=== PATIENT | male | born 1965 | race Caucasian/White ===

== ENCOUNTER → 2020-02-15 | Outpatient (CLI) | payer BC | LOC: RAD 17:24 | DX: M79.671 Pain in right foot (principal); M19.071 Primary osteoarthritis, right ankle and foot; V86.99XA Unspecified occupant of other special all-terrain or other off-road motor vehicle injured in nontraffic accident, initial encounter | CPT/HCPCS: 71101; 73610; 73630 ==

== ENCOUNTER 2020-07-25 12:13 | Emergency (ER) | payer BC ==
[2020-07-25 13:28] LABS: HEMOGLOBIN 17.6 gm/dl (14.0-17.5); RED BLOOD COUNT 5.29 M/UL (4.20-5.50); WHITE BLOOD COUNT 9.7 K/UL (4.5-11.0)
[2020-07-25 13:52] LABS: BUN/CREATININE RATIO 22 (0-10)
== END 2020-07-25 17:50 | disposition home or self-care (01) ==
LOC: ER1 12:13
PROVIDERS: Nurse Practitioner
DX: R07.9 Chest pain, unspecified (principal); E11.9 Type 2 diabetes mellitus without complications; E78.5 Hyperlipidemia, unspecified; Z79.84 Long term (current) use of oral hypoglycemic drugs; Z79.899 Other long term (current) drug therapy; M79.7 Fibromyalgia
CPT/HCPCS: 71045; 80053; 81001; 82550; 82553; 83605; 83735; 83874; 84484; 85025; 85379; 93005; 99285

== ENCOUNTER 2021-09-19 13:07 | Emergency (ER) | payer BC ==
[2021-09-19 14:13] LABS: HEMOGLOBIN 18.3 gm/dl (14.0-17.5); RED BLOOD COUNT 5.51 M/UL (4.20-5.50); WHITE BLOOD COUNT 10.3 K/UL (4.5-11.0)
[2021-09-19 14:42] LABS: BUN/CREATININE RATIO 19 (0-10)
== END 2021-09-19 17:25 | disposition home or self-care (01) ==
LOC: ER1 13:07
DX: R79.9 Abnormal finding of blood chemistry, unspecified (principal); Z20.822 Contact with and (suspected) exposure to COVID-19
CPT/HCPCS: 0240U; 71045; 80053; 81001; 82150; 82550; 82553; 83605; 83690; 84484; 85025; 85652; 86140; 96374; 99284; J2405; Q9967